=== PATIENT | female | born 1970 | race Caucasian/White ===

== ENCOUNTER 2018-07-24 16:18 | Inpatient (IN) ==
[2018-07-24 17:11] LABS: BASO# 0.02 X1000 (0.0-0.2); BASO% 0.3 % (0.0-0.8); EOS# 0.13 X1000 (0.0-0.7); EOS% 1.8 % (0.0-10.0); HEMATOCRIT 40.3 % (37.0-47.0); HEMOGLOBIN 13.3 g/dL (12.0-16.0); LYMPH% 17.6 % (20.5-51.1); MCH 28.9 PG (27-31); MCV 87.6 FL (81-99); MONO# 0.49 X1000 (0.11-0.59); MONO% 6.6 % (1.7-9.3); MPV 9.1 FL (7.4-10.4); NEUT# 5.46 X1000 (1.4-6.5); NEUT% 73.7 % (42.2-75.2); PLT 255 X1000 (130-400); RDW 15.9 % (11.5-14.5)
[2018-07-24 17:37] LABS: AGAP 13; ALB/GLOB RATIO 1.3; ALBUMIN 3.7 g/dL (3.5-5.0); ALKALINE PHOSPHATASE 67 U/L (32-104); AMYLASE 40 U/L (20-200); BUN 9 mg/dL (8-22); CALCIUM 8.9 mg/dL (8.8-10.2); CHLORIDE 105 mmol/L (98-107); COSMO 281; CREATININE 0.7 mg/dL (0.5-0.9); ESTIMATED GFR > 60; GLUCOSE 143 mg/dL (70-104); GOT 9 U/L (10-30); GPT 13 U/L (10-36); LIPASE 13 U/L (13-60); POTASSIUM 3.9 mmol/L (3.5-5.1); SODIUM 140 mmol/L (136-145); TCO2 22 mmol/L (25-35); TOTAL BILIRUBIN 0.55 mg/dL (0.20-1.00); TOTAL PROTEIN 6.6 g/dL (6.3-8.3)
[2018-07-24 20:55] LABS: URINE SOURCE CLEAN CATCH
--- NOTE | 2018-07-24 20:55 | PROVIDER DOCUMENTATION ---
HPI-Abdominal Pain/GI Problem - General Chief Complaint: Abdominal Pain Stated Complaint: ABD PAIN Time Seen by Provider: 07/24/18 20:36 Source: patient Allergies/Adverse Reactions: Patient Allergies Allergy/AdvReac Type Severity Reaction Status Date / Time naproxen Allergy Intermediate Unknown Verified 07/23/18 16:51 Home Medications: Home Medication List Medication Instructions Recorded Confirmed Last Taken Type Ibuprofen [Motrin] 800 mg PO Q8H PRN PRN #20 tab 02/11/17 Unknown Rx Acetaminophen 2 tab PO Q4-6H PRN PRN 07/25/18 07/25/18 Unknown History Acetaminophn/Pyril Mal/Caffein 1 cap NS Q8H PRN PRN 07/25/18 07/25/18 Unknown History [Midol Caplet] - History of Present Illness-ABD Nature of Presenting Problems: patient is a 48 y/o female with history of DUB presented with lower abdominal pain and vaginal bleeding, patient did not have FOOD AND DRUG RESEARCH SCIENTIST doctor to follow up. patient had ultrasound yesterday and was told fibroids. patient came in with pain in the abdomen Pain Radiation: reports: RLQ, LLQ Quality of Pain: reports: sharp Severity in ED: reports: moderate Onset/Duration: reports: gradual, other (chronic for years) Timing: reports: still present Exposure to sick contacts?: No Modifying Factors: improves with: nothing Last BM: unsure Rectal Pain: reports: none Emesis Description: reports: none Review of Systems - Adult - REVIEW OF SYSTEMS - ADULT Constitutional: denies: fever Eyes: reports: no symptoms reported Ears, Nose, Mouth & Throat: reports: no symptoms reported Cardiovascular: reports: no symptoms reported Respiratory: reports: no symptoms reported Gastrointestinal: reports: no symptoms reported Genitourinary: reports: other (vaginal bleeding) Musculoskeletal: reports: no symptoms reported Integumentary: reports: no symptoms reported Neurological: reports: no symptoms reported Psychiatric: reports: no symptoms reported Endocrine: reports: no symptoms reported Hematologic/Lymphatic: reports: other (prolonged vaginal bleeding) Past History - Adult - PAST MEDICAL HISTORY-ADULT Review of Records: reports: Nursing Assessment Review Major Childhood Illnesses: reports: denies history Cardiovascular: reports: denies history Respiratory: reports: denies history Gastrointestinal: reports: denies history Obstetrical/Gynecological: reports: denies history Genitourinary: reports: denies history Musculoskeletal: reports: chronic pain, intervertebral disc disease Neurological: reports: headaches/migraines Psychiatric: reports: denies history Endocrine/Immune: reports: Diabetes Other Conditions: reports: denies history - PRIOR SURGERIES/PROCEDURES Surgical/Procedure History: reports: cholecystectomy, - IMMUNIZATION STATUS Childhood Immunizations: See Nurse Assessment Flu Vaccine: See Nurse Assessment - FAMILY HISTORY Family History: diabetes Physical Exam-General - PHYSICAL EXAM-ADULT Initial Vital Signs Reviewed: No - CONSTITUTIONAL General Appearance: alert - EYES Eyes: PERRL/EOMI - HEAD, EARS, NOSE, MOUTH & THROAT HENMT: normocephalic/atraumatic - NECK Neck: non-tender - RESPIRATORY Respiratory: lungs clear - CARDIOVASCULAR Cardiovascular: no edema - GASTROINTESTINAL (ABDOMEN) Abdominal Exam: other (lower abdominal tenderness) - LYMPHATIC Lymphatic: no adenopathy - MUSCULOSKELETAL Back Exam: normal inspection, no vertebral tenderness Extremity: non-tender - NEUROLOGIC Neurologic: battalion chief II-XII nml as tested, grossly normal Progress - PLAN OF CARE/RESULTS Progress/Plan/Lab Results: Vital Signs - 8 hr 07/24/18 16:22 Temperature 97.7 F Pulse Rate 108 H Respiratory Rate 20 Blood Pressure 132/68 O2 Sat by Pulse Oximetry 96 Bedside Urine ED: Urine Bedside Start: 07/24/18 16:29 Freq: ORDERED Status: Active Protocol: Activity Type Activity Date Activity User E-Sign Co-Sign Detail Recorded Client Recorded Date Recorded By Document 07/24/18 20:47 [id number] 07/24/18 20:47 [id number] 07/24/18 20:47 Point of Care [Bedside Point of Care] -Lot # [id number] - Results Negative -Control Line Visible? Yes -Additional Comment exp 2019-09-14 Laboratory Results - last 24 hr 07/24/18 07/24/18 16:30 16:30 WBC 7.40 RBC 4.60 Hgb 13.3 Hct 40.3 MCV 87.6 MCH 28.9 MCHC 33.0 RDW Std Deviation 15.9 H Plt Count 255 MPV 9.1 Immature Gran % (Auto) 0.0 Neut % (Auto) 73.7 Lymph % (Auto) 17.6 L [place] % (Auto) 6.6 Eos % (Auto) 1.8 Baso % (Auto) 0.3 Immature Gran # (Auto) 0.00 Neut # (Auto) 5.46 Lymph # (Auto) 1.30 [place] # (Auto) 0.49 Eos # (Auto) 0.13 Baso # (Auto) 0.02 Sodium 140 Potassium 3.9 D Chloride 105 Carbon Dioxide 22 L Anion Gap 13 BUN 9 Creatinine 0.7 Estimated GFR/1.73 m2 > 60 BUN/Creatinine Ratio 13 Glucose 143 H Calculated Osmolality 281 Calcium 8.9 Total Bilirubin 0.55 AST 9 L ALT 13 Alkaline Phosphatase 67 Total Protein 6.6 Albumin 3.7 Globulin 2.9 Albumin/Globulin Ratio 1.3 Amylase 40 Lipase 13 Orders Category Date Time Status ED: Urine Bedside ORDERED Care 07/24/18 16:29 Active Saline Loc DIRECTED Care 07/24/18 16:29 Active NPO Diet 07/24/18 16:29 Active AMYLASE [CHEM] Stat Lab 07/24/18 16:30 Completed CBC WITH ELECTRONIC DIFF [HEME] Stat Lab 07/24/18 16:30 Completed COMPREHENSIVE METABOLIC PANEL [CHEM] Stat Lab 07/24/18 16:30 Completed LIPASE [CHEM] Stat Lab 07/24/18 16:30 Completed URINALYSIS W/POSS RFLX CULT [URINALYSIS] Stat Lab 07/24/18 20:47 Ordered Result Diagrams: 07/24/18 16:30 07/24/18 16:30 - CONSULTS/PCP/HOSPITALIST Notification #1 *Consult/PCP/Hospitalist*: Dr England Time Discussed: 22:00 Consult Disposition: other (wanted medical team admit patient and consult FOOD AND DRUG RESEARCH SCIENTIST) #2 Consult: Dr Loaiza Time Discussed: 22:10 Consult Disposition: Admit (OK to admit) Departure - Departure Date of Disposition Decision: 07/24/18 Time of Disposition Decision: 22:17 DIAGNOSIS: PID (pelvic inflammatory disease), UTI (urinary tract infection), DUB (dysfunctional uterine bleeding) Disposition: ADMITTED INPATIENT 09 Certified Medical Emergency: Emergent Condition: Good - Critical Care Note This patient required my direct & personal management of CC.: No Attestation - Physician/ AILYN Attestation Patient care was provided by Advanced Practice Provider:: No The physician spent face to face time with patient:: Yes Advanced Practice Provider documentation review:: Supervising physician onsite and consulted in the evaluation and care of this patient. The physician did have a face to face encounter with the patient.
[2018-07-24 20:58] LABS: BILIRUBIN URINE NEGATIVE (NEGATIVE); BLOOD URINE LARGE (NEGATIVE); COLOR ORANGE; GLUCOSE URINE TRACE mg/dL (NEGATIVE); KETONE URINE NEGATIVE (NEGATIVE); LEUKOCYTES URINE MODERATE (NEGATIVE); NITRITE URINE NEGATIVE (NEGATIVE); PH URINE 5.5; PROTEIN URINE 50 mg/dL (NEGATIVE); SP GRAVITY URINE 1.017; TURBIDITY URINE HAZY (CLEAR); UR EPITHELIAL CELLS <10 /HPF (<10); URINE BACTERIA 1+ /HPF; URINE RBC TNTC /HPF (<10); URINE WBC 20-40 /HPF (<10); UROBILINOGEN URINE NORMAL (NORMAL)
[2018-07-24] MEDS ORDERED: DILAUDID IM ONE (21:11)
[2018-07-24] MEDS ORDERED: ZOFRAN IM ONE (21:11)
--- NOTE | 2018-07-24 21:52 | Diag Imaging Result Doc PS360 ---
EXAM: CT ABDOMEN/PELVIS W/O CONTRAST INDICATION: lower abdominal pain, vaginal bleeding TECHNIQUE: This exam was performed using automated exposure control, adjustment of mA or kV according to patient size, and/or use of iterative reconstruction technique. COMPARISON: None. FINDINGS: There has been a prior cholecystectomy. The liver, spleen, pancreas, adrenal glands, kidneys, and urinary bladder are grossly unremarkable. There is inflammatory stranding in the right lower quadrant and right-sided the pelvis. I cannot clearly identify the appendix. Appendicitis cannot completely be excluded. However, the inflammation appears to be more centered around the right adnexal region. Pelvic inflammatory disease is a consideration. Further evaluation is limited with no IV or oral contrast. There is trace free fluid in the pelvis. The GI tract is grossly unremarkable as imaged. No free abdominal gas is identified. The bony structures are grossly intact. IMPRESSION: Inflammatory stranding in the right lower quadrant and right side of the pelvis. The appendix cannot be identified so appendicitis cannot completely be excluded. However, the inflammation appears to be more centered around the right adnexal region. Electronically signed by Jm Xavier 07/24/2018 9:49 PM
[2018-07-24 21:54] LABS: AMYLASE 39 U/L (20-200); LIPASE 14 U/L (13-60)
[2018-07-24] MEDS ORDERED: DILAUDID IV ONE (22:14)
[2018-07-24] MEDS ORDERED: ROCEPHIN 1 GM in NS 50 ML IV SCH (22:15)
[2018-07-24] MEDS ORDERED: ZOFRAN IV ONE (22:15)
[2018-07-24] MEDS ORDERED: FLAGYL 500 MG/NS 500 MG/100 ML IVPB IV SCH (23:00)
--- NOTE | 2018-07-24 23:54 | HISTORY AND PHYSICAL ---
PRIMARY CARE PHYSICIAN: Dr. Johnson CHIEF COMPLAINT: Heavy menstrual cycles and abdominal pain. HISTORY OF PRESENTING ILLNESS: A 48-year-old female with a history of diabetes mellitus type 2, diet-controlled, who had presented to emergency department with 2 weeks history of having heavy menstruation and abdominal discomfort. She was evaluated in the emergency department. She had a urinalysis done which was suspicious for UTI, and due to her presenting symptoms, it was thought that she would need admission for further management. At the time of my examination, the patient had stated that she was having heavy menstrual cycles since 2 weeks and she had gone through 14 to 15 tampons per day. Her case was discussed with the furnace repairer helper, who recommended the patient be admitted for further evaluation and management. At the time of my examination, patient denied any headache, fever, chills, nausea, vomiting, diarrhea, hemoptysis, melena, weight changes, but complained of some suprapubic abdominal pain. PAST MEDICAL HISTORY: Includes diabetes mellitus type 2, diet-controlled. PAST SURGICAL HISTORY: Cholecystectomy. ALLERGIES TO: Naproxen. CURRENT MEDICATIONS: Include gabapentin 100 mg, 2 tablets at bedtime, meloxicam 7.5 mg p.o. daily, metformin 500 mg p.o. daily, rosuvastatin 5 mg p.o. daily, Zantac 150 mg p.o. daily. SOCIAL HISTORY: She is a former smoker. Denies any history of alcohol or illicit drug use. FAMILY HISTORY: No history of coronary disease. REVIEW OF SYSTEMS: Fourteen-point review of systems is as in HPI. Other systems negative. PHYSICAL EXAMINATION: GENERAL: Cooperative, friendly, obese female. She is resting comfortably now. VITAL SIGNS: Temperature 97.7 degrees, pulse 108, respirations 20, blood pressure 132/60. HEENT: Atraumatic, normocephalic. Extraocular movements intact. PERRLA. NECK: No masses. CHEST: Clear to auscultation. CARDIOVASCULAR: Regular rate and rhythm. ABDOMEN: Soft, obese. Positive bowel sounds. GENITOURINARY: There is some suprapubic tenderness. EXTREMITIES: No edema. NEUROLOGIC: She is awake, alert, oriented x3. GENITOURINARY: No bladder distention. There is some suprapubic tenderness. SKIN: Warm. LABORATORIES AND STUDIES: WBC 7.4, hemoglobin 13.3, hematocrit 40.3, platelets 255,000. Sodium 140, potassium 3.9, chloride 105, CO2 is 22, BUN 9, creatinine 0.7. Glucose is 143. Abdominal CT shows inflammatory stranding in the right lower quadrant and right side of the pelvis. ASSESSMENT: This is a 48-year-old obese female who had presented to emergency department with 2 week history of having heavy menstrual cycles and also abdominal pain. She was evaluated in the emergency department. She had a urinalysis done, which did show suspicion for urinary tract infection, and due to her presenting symptoms, it was thought that we will place her for observation for further evaluation and management. 1. Abnormal Uterine Bleeding 2. Urinary tract infection. 3. Diabetes mellitus type 2. PLAN: 1. We will admit patient to medical floor. 2. We will consult gynecology. 3. We will check urine cultures. Start patient on IV antibiotics. 4. We will monitor blood glucose and put patient on sliding scale insulin regimen. 5. Put patient on DVT prophylaxis with SCDs. 6. We will continue to follow and reassess, make further recommendation based on patient's clinical course. cc: Omari Loaiza MD MTDD
[2018-07-25] MEDS ORDERED: DOXYCYCLINE 100 MG in NS 250 ML IV SCH (01:00)
[2018-07-25] MEDS: NS 1,000 ML IV SCH ×3 (01:48→22:54)
[2018-07-25] MEDS: DILAUDID IV PRN ×4 (01:48→22:54)
[2018-07-25] MEDS: HUMULIN R SUBQ SCH ×4 (02:20→17:35)
[2018-07-25 07:12] LABS: BASO# 0.02 X1000 (0.0-0.2); BASO% 0.2 % (0.0-0.8); EOS# 0.01 X1000 (0.0-0.7); EOS% 0.1 % (0.0-10.0); HEMATOCRIT 37.3 % (37.0-47.0); HEMOGLOBIN 12.1 g/dL (12.0-16.0); IMM GRAN# 0.02 X1000 (0.0-0.04); IMM GRAN% 0.2 % (0.0-0.5); LYMPH# 0.75 X1000 (1.2-3.4); LYMPH% 8.2 % (20.5-51.1); MCH 28.9 PG (27-31); MCHC 32.4 g/dL (33-37); MONO# 0.77 X1000 (0.11-0.59); MONO% 8.5 % (1.7-9.3); NEUT# 7.54 X1000 (1.4-6.5); NEUT% 82.8 % (42.2-75.2); PLT 234 X1000 (130-400); RBC 4.19 XMIL (4.2-5.4); WBC 9.11 X1000 (4.8-10.8)
[2018-07-25 07:47] LABS: AGAP 11; BUN 9 mg/dL (8-22); CALCIUM 8.9 mg/dL (8.8-10.2); CHLORIDE 104 mmol/L (98-107); COSMO 282; CREATININE 0.7 mg/dL (0.5-0.9); ESTIMATED GFR > 60; GLUCOSE 198 mg/dL (70-104); SODIUM 139 mmol/L (136-145); TCO2 24 mmol/L (25-35)
--- NOTE | 2018-07-25 11:35 | PROGRESS NOTE ---
DATE: 07/25/2018 SUBJECTIVE: This is a 48-year-old followed by Dr. Johnson in the past and at present seen [facility] and complained of heavy menstrual cycle and presented to the emergency room. History of diabetes mellitus type 2, diet controlled. Presented to the emergency department with a 2-week history of heavy menstruation, abdominal discomfort. Evaluated in the emergency department. Had urinalysis suspicious for UTI. Due to her presenting symptoms, felt she needed to be admitted. She has been having heavy menstrual cycles for a couple weeks going through 14 to 15 tampons a day. Her case was discussed with circulation librarian. Recommend the patient be admitted for further evaluation and management. PAST MEDICAL HISTORY: Diabetes mellitus type 2. SURGICAL HISTORY: Status post cholecystectomy. MEDICATION: I think she is on gabapentin, meloxicam, metformin, rosuvastatin and Zantac. SOCIAL HISTORY: Former heavy smoker. No history of alcohol or recent tobacco. No illicit drugs. OBJECTIVE: Vital Signs: On exam today, she is awake and alert. is at the bedside. Vital Signs: Temperature 98.9 degrees, pulse 70, respirations 22, blood pressure 117/61. Eyes: Pupils are equal and round. Lungs: Clear in all lung can. Cardiovascular exam: Regular rhythm and rate without murmur or S3. Abdomen: Soft. Skin: Warm and dry. Blood sugar 194 and 197. ASSESSMENT AND PLAN: 1. Heavy abnormal uterine bleeding. Asked Gynecology to help dictate what we are going to do and what is a definitive treatment. 2. Treating for possible urinary tract infection. 3. Diabetes mellitus type 2. Note that on her lab, hemoglobin was 13, hematocrit 40; repeat today, hematocrit 37 and hemoglobin 12. No indications for transfusion. Note also MCV is 89, so not microcytic. Electrolytes look good. Renal function looks good. I will let her have a full liquid diet. I think we can advance from there. We are treating her for urinary tract infection with ceftriaxone. cc: Conner Mace MD MTDD
[2018-07-25 15:48] LABS: HEMOGLOBIN A1C 5.8 % (4.8-6.0)
[2018-07-25 15:54] LABS: FREE T4 1.14 ng/dL (0.93-1.70); TSH 0.39 uIUmL (0.27-4.20)
--- NOTE | 2018-07-25 18:14 | PROGRESS NOTE ---
DATE: 07/25/2018 Ms. Salgado has not had any real further bleeding today and she was evaluated by DISPLAY DECORATOR. She had a pelvic ultrasound done on 07/23, small right ovarian cyst, otherwise negative. DISPLAY DECORATOR was not able to get a biopsy and recommended that she go on Megace 40 mg twice a day till the bleeding stops then 40 mg a day. As far as the mention on abdominal pelvic CT, inflammatory stranding in the right lower quadrant, right side of the pelvis, appendix could not be identified so appendicitis could not be excluded. She would like surgery to render opinion so will stay here tonight. I will advance her to a diabetic diet. She remains afebrile, pulse 70, respirations 22, blood pressure Pupils are equal and round. Lungs are clear in all lung can. Cardiovascular. Regular rhythm, rate without murmur or S3. Blood sugars 194 and 137. Advance her diet and ask Dr. Ian Singh to see her in the morning. My clinical suspicion of appendicitis is very low. White count is unremarkable. I did discuss the importance of her following up with DISPLAY DECORATOR and continue the Megace. I think she was on Micronor before but she does not have that prescription anymore. cc: Conner Mace MD MTDD
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
[2018-07-25] MEDS: MEGACE PO SCH (22:55)
[2018-07-25] MEDS ORDERED: ROCEPHIN 1 GM in NS 50 ML IV SCH (23:00)
[2018-07-26] MEDS: DILAUDID IV PRN ×3 (02:55→11:20)
[2018-07-26] MEDS: HUMULIN R SUBQ SCH ×4 (06:28→20:06)
--- NOTE | 2018-07-26 07:14 | GENERAL SURGERY CONSULTATION ---
DATE: 07/26/2018 REQUESTING PHYSICIAN: Dr. Mace. CONSULT REQUEST: Rule out appendicitis. HISTORY OF PRESENT ILLNESS: A 48-year-old female who initially presented with heavy menstrual cycles and abdominal pain. She has had a 2-week history of heavy menstruation. She has been started on medication by the neurology epilepsy physician. In the process of the working her up, she did have a CT scan which they could not see the appendix but there was some fluid down in her pelvis and some inflammatory changes, but it appears to be more centered around the right ovary. Given this, there was some concern about potential for appendicitis. I was asked to weigh an opinion. PAST MEDICAL HISTORY: 1. Diabetes mellitus type 2. 2. Obesity with a BMI of 45. PAST SURGICAL HISTORY: Includes cholecystectomy. ALLERGIES: Naproxen. CURRENT MEDICATIONS: Reviewed. Of note, she is on Rocephin. SOCIAL HISTORY: Former smoker. FAMILY HISTORY: Reviewed with patient, but noncontributory. REVIEW OF SYSTEMS: A full 10-point review of systems obtained, negative except as specified in HPI. PHYSICAL EXAMINATION: Vital Signs: Patient is currently afebrile. Her vital signs have been stable. General: No acute distress, resting comfortably. HEENT: Normocephalic, atraumatic. Pupils equal, round, reactive to light. Mucous membranes moist. Oropharynx benign. Neck: Supple. Trachea midline. Cardiovascular: Regular rate and rhythm. Lungs: Grossly clear. Abdomen: Obese. No real peritoneal signs. No real tenderness in the right lower quadrant at McBurney's point. No rebound tenderness. Extremities: Moves all extremities. Neurologic: Grossly intact. Skin: No signs of jaundice. Vascular: All extremities perfused. LABORATORY: None this morning but reviewed yesterday. White blood cell count was 9. Remainder of labs reviewed. IMAGING: CT scan independently reviewed and radiology report reviewed. ASSESSMENT/PLAN: A 48-year-old with heavy menstrual bleeding and some abdominal pain for rule out appendicitis. 1. Rule out appendicitis. At this time, I have a low degree of suspicion that she has appendicitis. She is not significantly tender in the right lower quadrant. She has inflammatory changes more on the right adnexa than the appendix itself. Since she has been admitted, she has been on antibiotics, which may be masking it slightly, but again, clinically I do not think she has appendicitis, but would not be opposed to watching her and monitoring for now. No immediate plans for surgical intervention. 2. Heavy menstruation. Defer to the neurology epilepsy physician. cc: Iam Bruner MD
[2018-07-26] MEDS: MEGACE PO SCH ×2 (08:21→20:07)
--- NOTE | 2018-07-26 15:15 | PROGRESS NOTE ---
DATE: 07/26/2018 SUBJECTIVE: She reports that she is having more pain in her right lower quadrant. The exam is really not very consistent. I do not appreciate tenderness in the right lower quadrant. She is stating that the pain medicine is not holding her. Dr. Bruner has evaluated. He does not see evidence of appendicitis and she could have some other process such as endometriosis or something else going on. I do not see any evidence of a surgical abdomen. Initial bleeding has let up and she is on Megace. She remains afebrile. She is eating diabetic diet. OBJECTIVE: Vital signs: Temp is 97.5 degrees, pulse 80, respirations 20, blood pressure 122/70. HEENT: Pupils are equal and round. Lungs: Clear in all lung can. Cardiovascular: Regular rhythm and rate without murmur or S3. Abdomen: Soft, nondistended. I do not have consistent tenderness on exam in any quadrant. Extremities: No pedal edema. ASSESSMENT AND PLAN: 1. She initially presented with heavy menstrual bleeding and that has been controlled. She does not have any significant anemia. She is on Megace. Advised to follow up with a senior solutions architect, to take Megace 40 mg twice a day and then once a day when the bleeding lets up, and follow up with Gynecology. There is a possibility of endometriosis. 2. Abdominal pain which is inconsistent. I think we need to stop the opioid pain medicines; I do not think this is helping. I will check a flat and upright and see if constipation is a factor. Inflammatory changes on CT scan seem to be more around the right adnexal than the appendix itself and no evidence of appendicitis at this time. I may get GI involved tomorrow if she still continues to hurt. We will work on trying to move her bowels. I will stop her Dilaudid and will use Toradol and Tylenol. I reviewed her labs again and I do not see anything remarkable that would suggest liver dysfunction or absorption issues. 3. Diabetes. Sugars seem to be under fairly good control. We will continue ceftriaxone. I do not see any evidence of true infection. We did have a urine culture and there is no pathological growth in there. Blood cultures were negative. So, I will stop her ceftriaxone and we will check a flat and upright. cc: Conner Mace MD
--- NOTE | 2018-07-26 17:42 | Diag Imaging Result Doc PS360 ---
EXAM: KUB ABDOMEN INDICATION: constipation, R sided abdominal pain TECHNIQUE: One view COMPARISON: None. FINDINGS: There is a fair amount of stool in the colon, which may indicate mild constipation. There is no obstructive bowel pattern. There is no evidence of large volume free abdominal gas. Cholecystectomy clips are noted. IMPRESSION: Possible mild constipation. Electronically signed by Jm Xavier 07/26/2018 5:39 PM
[2018-07-26] MEDS: TORADOL IV PRN (19:34)
[2018-07-27] MEDS: TORADOL IV PRN ×4 (03:10→22:03)
[2018-07-27] MEDS: HUMULIN R SUBQ SCH ×4 (05:59→21:09)
--- NOTE | 2018-07-27 07:15 | GENERAL SURGERY PROGRESS NOTE ---
DATE: 07/27/2018 SUBJECTIVE: The patient seems to be doing okay. OBJECTIVE: Vital Signs: The patient is currently afebrile. Her vital signs are stable. General Examination: No acute distress. HEENT: Normocephalic, atraumatic. Pupils equal, round, reactive to light. Mucous membranes moist. Oropharynx benign. Neck: Supple. Trachea midline. Cardiovascular: Regular rate and rhythm. Lungs: Grossly clear. Abdomen: Soft, obese. Some mild tenderness but no peritoneal signs. No real tenderness in the right lower quadrant. Extremities: Moves all extremities. Neurologic: Grossly intact. Skin: No signs of jaundice. Vascular: All extremities perfused. Laboratory: None this morning as of yet. ASSESSMENT AND PLAN: A 48-year-old female with abdominal pain. Abdominal pain. At this time, I do not think that she clinically has appendicitis. She has gone 24 more hours without any significant increase in her pain. I think it is safe to say that we have ruled out appendicitis. From this point of view, we will be available as needed. She could see myself in the office in 1 to 2 weeks. cc: Iam Bruner MD
[2018-07-27] MEDS: TYLENOL PO PRN ×2 (08:01→16:36)
[2018-07-27] MEDS: MEGACE PO SCH ×2 (09:30→21:10)
[2018-07-27] MEDS: PRILOSEC PO SCH (12:18)
[2018-07-27] MEDS: MIRALAX PO SCH ×2 (12:18→21:10)
[2018-07-27] MEDS ORDERED: GOLYTELY PO ONE (14:00)
--- NOTE | 2018-07-27 14:08 | PROGRESS NOTE ---
DATE: 07/27/2018 SUBJECTIVE: She states she does not feel good at all. She is hurting more in her abdomen now. It is predominantly more on the right but it is all across her lower abdomen, cramping type pain. She feels like she has had fever and chills. I do not see that recorded last night. PHYSICAL EXAMINATION: Vital Signs: Today, temperature 97.9 degrees, pulse 88, respirations 16, blood pressure 130/47. Pupils are equal. No distended neck veins. Abdomen: Really not consistent exam. I do not appreciate any true repeatable tenderness there. I did ask Dr. Sanchez to see. ASSESSMENT AND PLAN: 1. She had a CT scan. She came in with vaginal bleeding and this is better. The swelling has stopped. She has had heavy menstrual cycles. She has been put on Megace. On the CT scan, I could not really see the appendix but there was some fluid down in the pelvis and some inflammatory changes. It might be around the right ovary. Dr. Sanchez is going to, I think, look with a colonoscopy and see if anything is in the right colon and kind of go from there. 2. Obesity. Body mass index is 45. 3. Heavy menstrual periods. She is on the Megace. I have gone ahead and stopped her antibiotic. I stopped the Dilaudid and we will use Toradol as needed. I put her on a proton pump inhibitor and she has some mild constipation so I put her on some MiraLAX 17 g twice a day. I am going to get her ready for prep for a colonoscopy tomorrow. cc: Conner Mace MD
--- NOTE | 2018-07-27 15:22 | GASTROENTEROLOGY CONSULTATION ---
DATE: 07/27/2018 REQUESTING PHYSICIAN: Dr. Mace. REASON FOR CONSULT: Abdominal pain in the right lower quadrant. HISTORY OF PRESENT ILLNESS: Ms. Salgado is a 48-year-old female who was admitted on 07/24/2018 for menorrhagia and right lower quadrant abdominal pain. She was seen by OB in the hospital and they suggested starting her on Megace 40 mg b.i.d. until the bleeding stops and once a day thereafter. She was also seen by general surgery for right lower quadrant pain and abnormal CT scan. The CT scan on admission had shown evidence of inflammatory stranding in the right lower quadrant and right side of the pelvis. The appendix could not be identified but according to the CT scan report, the inflammation appeared to be more centered around the right adnexal region. Dr. Bruner saw the patient and is continuing with conservative management. No plans for any surgical intervention at this moment. According to Dr. Bruner's note, it appears that he is not convinced that the patient has appendicitis. Now gastroenterology is consulted for ongoing abdominal pain in the right lower quadrant and constipation. Over the weekend, she was on IV Dilaudid which made her constipated. She had her last bowel movement 3 days ago. She denies any nausea or vomiting. She does complain of feverish sensation but the records on review did not reveal any documented fever other than on admission of 100.7 on 07/24/2018. She denies any nausea, vomiting, vomiting blood. She complains of constipation. PAST MEDICAL HISTORY: Diabetes type 2, obesity. PAST SURGICAL HISTORY: Cholecystectomy. ALLERGIES: Naproxen. SOCIAL HISTORY: She is a former smoker. She denies a history of alcohol or illicit drug abuse. She is . Her is very supportive at the bedside. FAMILY HISTORY: Noncontributory. REVIEW OF SYSTEMS: Denies any nausea, vomiting, vomiting blood. Does complain of feverish feeling. Denies any rigors and chills. Denies any chest pain, shortness of breath, or dyspnea at rest. Denies any vomiting blood. Denies any blood in the stools. Does complain of constipation, and pain in the right lower quadrant and in the suprapubic region. She denies any neurologic complaints. MEDICATIONS: In the hospital include Tylenol, human regular insulin subcutaneous, ketorolac, Megace 40 mg p.o. b.i.d., Prilosec 40 once daily. She was started on MiraLAX 17 g p.o. b.i.d., just started for constipation. DIET: She is on a diabetic diet. PHYSICAL EXAMINATION: Vital Signs: Temperature 98.2 degrees, pulse rate of 80, respiratory rate of 16, blood pressure 107/31, saturating 100% on room air. Body weight of 258 pounds and 3 ounces. BMI 45.7 kg/m2. General: Morbidly obese. Lying in bed. Complaining of pain in the right lower quadrant. HEENT: No pallor. No icterus. Pupils equal, reactive to light. Neck: Supple. Abdomen: Discomfort in the right lower quadrant. No rebound or guarding. Morbid obesity noted. Extremities: No cyanosis, clubbing. Neurologic: Alert, awake, oriented x3. LABS: Hemoglobin and hematocrit are 12.1 and 37.8, white count of 9.1, platelet count of 234,000. Sodium 139, potassium 4, chloride 104, bicarb 24, anion gap 11, BUN of 9, creatinine 0.7, glucose of 198, calcium is 8.9, hemoglobin A1c 5.8. Total bilirubin is 0.55, AST 9, ALT 13, alkaline phosphatase 60, total protein 6.6, albumin 3.7, lipase of 14, amylase of 39. Urinalysis showed positive protein, positive blood, moderate leukocytes. Urine culture, no pathogenic growth. Blood cultures x2 negative at 48 hours, from 07/26/2018. Abdominal x-ray done on 07/26/2018 showed possible mild constipation. There is fair amount of stool in the colon which may indicate mild constipation. Cholecystectomy clips are noted. Abdominal CT scan as described in the HPI. IMPRESSION AND PLAN: 1. Menorrhagia and right lower quadrant inflammation centered around the right adnexa. She needs to be followed by a gynecology team. I have discussed that with the patient and Dr. Mace. 2. Constipation. We will start her on MiraLAX 17 g twice a day and hold it for more than 3 bowel movements in 24 hours. 3. Right lower quadrant pain. There is a question of colitis. The patient's also a history of Crohn's disease. We have offered endoscopy/colonoscopy to the patient. The patient and family want to undergo colonoscopy to evaluate for any underlying colon pathology. In this regard, we will start her on a clear liquid diet today. We will give her GoLYTELY 1 gallon, scheduled for colonoscopy tomorrow by Dr. Valle. Risks Benefits indications and alternatives discussed with the patient and family and all questions were answered. 4. Diabetes, diet-controlled. 5. Gastrointestinal prophylaxis with proton pump inhibitors. 6. Pain control with ketorolac. 7. We will follow along. I discussed the plan with the patient and the family at bedside. I also spoke with Dr. Conner Mace. The above plan was discussed with the patient and family and the primary care team, and all questions were answered. Please call us with any further questions. cc: MD Conner Wright MD R. Tyler Harney, MD Matthew L. Figh, MD MTDD
[2018-07-27] MEDS: ZOFRAN IV PRN ×2 (16:36→21:16)
[2018-07-28] MEDS: ZOFRAN IV PRN (01:53)
[2018-07-28] MEDS: TORADOL IV PRN ×3 (04:28→21:43)
[2018-07-28] MEDS: HUMULIN R SUBQ SCH ×4 (06:16→20:15)
[2018-07-28] MEDS: PRILOSEC PO SCH (06:16)
[2018-07-28] MEDS ORDERED: DIPRIVAN 1% ONE ×2 (12:08→12:28)
[2018-07-28] MEDS ORDERED: XYLOCAINE-MPF 2% ONE (12:09)
[2018-07-28] MEDS ORDERED: VERSED ONE (12:17)
[2018-07-28] MEDS: MEGACE PO SCH ×2 (13:38→20:14)
[2018-07-28] MEDS: MIRALAX PO SCH ×3 (13:38→22:30)
--- NOTE | 2018-07-28 15:00 | OPERATIVE NOTE ---
PROCEDURE DATE: 07/28/2018 PROCEDURE: Colonoscopy. PROVIDER: Dennis Valle MD. INDICATIONS: Right lower quadrant pain. MEDICATIONS: Monitored anesthesia care. DESCRIPTION OF PROCEDURE: Prior to procedure, a history and physical was performed. The patient's medication and allergies were reviewed. The patient's tolerance to previous anesthesia was also reviewed. The risks and benefits of the procedure and sedation, options and risks were discussed with the patient. All questions were answered, and informed consent was obtained. After reviewing the risks and benefits, the patient was deemed in satisfactory condition to undergo the procedure. The colonoscope was passed under direct visualization. Throughout the procedure, the patient's blood pressure, pulse and oxygen saturation were monitored continuously. Colonoscope was introduced through the anus, and advanced to the cecum identified by the appendiceal orifice and ileocecal valve. The colonoscopy was accomplished without difficulty. The quality of the prep was poor. The patient tolerated the procedure well. COMPLICATIONS: No immediate complications. ESTIMATED BLOOD LOSS: Minimal. FINDINGS: There was a thin liquid stool found throughout the colon that was otherwise normal. Colonoscopy could not rule out any flat or polyps less than 1 cm. Multiple attempts were made to try to intubate the ileocecal valve, which was unsuccessful. Retroflexion in the rectum was unremarkable. RECOMMENDATIONS: Resume diet and advance as tolerated. No lower GI etiology of the patient's abdominal pain found. It was unlikely the patient has Crohn's disease given her normal labs and absence of symptoms other than right lower quadrant pain. I suspect patient's pain may be related to ASSEMBLY TECHNICIAN etiology. Recommend further evaluation with transvaginal ultrasound and LIVESTOCK LABORER consultation.
--- NOTE | 2018-07-28 15:07 | PROGRESS NOTE ---
DATE: 07/28/2018 SUBJECTIVE: This patient just came back from the OR. She had a colonoscopy, pending results, but I believe is normal. On my physical exam, this patient is an obese lady with a body mass index of 45.7. She is lying comfortably in bed with no respiratory distress, but she is complaining of lower abdominal pain, mostly at the level of the right lower and left lower abdominal quadrants, no chest pain. OBJECTIVE: Vital Signs: Temperature 98.5, pulse 87, respiratory rate 20, blood pressure 138/52. Oxygen saturation 100% on room air. HEENT: Head normocephalic. No trauma. PERRLA. Neck: Supple. No JVD. No masses. Central trachea. Chest: Clear to auscultation. No wheezing. No rales. Abdomen: Soft. Tenderness to palpation at the level of the right lower and left lower quadrants. Some tenderness also at the level of the suprapubic area. Positive bowel sounds. No signs of peritoneal irritation. Extremities: No edema, no clubbing, no cyanosis. Neurologic: The patient is sleepy, but arousable. She is oriented. She is answering all my questions and following commands. LABORATORY: Glucose 82. ASSESSMENT AND PLAN: 1. Abnormal uterine bleeding. This patient has been placed on Megace 40 [address] p[address]o. b.i.d. by Dr. Charles Roberson. He has recommended to continue with Megace b.i.d. until bleeding stops and then once a day thereafter. She needs to follow up as an outpatient as soon as possible to continue treatment with Ski Guide. 2. Abdominal pain, mostly located at the level of the lower abdomen, right lower and left lower quadrant today. Also, at the suprapubic area. As per the patient, the she is not bleeding that much now, no signs of peritoneal irritation. We did a CT scan of the abdomen that showed inflammatory stranding in the right lower quadrant and right-sided of the pelvis. The appendix cannot be identified, so appendicitis cannot be completely excluded. However, the inflammation appears to be more centered around the right adnexal region. Surgery Department evaluated this patient and they do not think that she clinically has appendicitis, but they are following this lady on a daily basis. 3. Type 2 diabetes? I do not see any medication for diabetes on her home medications. Her blood sugar has been decent, but slightly elevated between 82 and 198, hemoglobin A1c 5.8, though, I will discuss with the patient about her diabetes. 4. Morbid obesity, diet and exercise has been discussed. 5. This patient had a colonoscopy today to rule out any rectal or colon issues. I will wait for the report, but I believe it is completely normal. We will just monitor. cc: Sergio Castellanos MD
[2018-07-28] MEDS: TYLENOL PO PRN (20:20)
--- NOTE | 2018-07-28 20:22 | GENERAL SURGERY PROGRESS NOTE ---
DATE: 07/28/2018 SUBJECTIVE: She just had a colonoscopy. Apparently, said she complains of kind of vague abdominal discomfort. No fevers. No tachycardia documented overnight. OBJECTIVE: Abdomen is soft. She is obese with pannus, but there is no bessie peritonitis. She is quite somnolent following her procedure, still somewhat drowsy. ASSESSMENT AND PLAN: A 48-year-old female with likely NEWS LIBRARIAN related changes causing her lower quadrant discomfort. No bessie signs of appendicitis on exam or imaging with a normal white count and no fevers. We will continue to follow her along but no plans for urgent surgical intervention. cc: Balbina Singh MD
[2018-07-29] MEDS: TYLENOL PO PRN ×2 (04:31→16:05)
[2018-07-29] MEDS: PRILOSEC PO SCH (06:46)
[2018-07-29] MEDS: HUMULIN R SUBQ SCH (06:54)
[2018-07-29 08:05] LABS: BASO# 0.01 X1000 (0.0-0.2); BASO% 0.1 % (0.0-0.8); EOS# 0.12 X1000 (0.0-0.7); EOS% 1.5 % (0.0-10.0); HEMATOCRIT 31.8 % (37.0-47.0); HEMOGLOBIN 9.9 g/dL (12.0-16.0); IMM GRAN# 0.03 X1000 (0.0-0.04); IMM GRAN% 0.4 % (0.0-0.5); LYMPH# 1.11 X1000 (1.2-3.4); LYMPH% 14.1 % (20.5-51.1); MCHC 31.1 g/dL (33-37); MCV 90.1 FL (81-99); MONO# 0.52 X1000 (0.11-0.59); MONO% 6.6 % (1.7-9.3); NEUT# 6.08 X1000 (1.4-6.5); NEUT% 77.3 % (42.2-75.2); PLT 276 X1000 (130-400); RBC 3.53 XMIL (4.2-5.4); RDW 15.4 % (11.5-14.5); WBC 7.87 X1000 (4.8-10.8)
[2018-07-29] MEDS: MIRALAX PO SCH ×2 (08:07→22:18)
[2018-07-29] MEDS: MEGACE PO SCH ×2 (08:07→22:18)
[2018-07-29 08:16] LABS: AGAP 9; ALKALINE PHOSPHATASE 71 U/L (32-104); BUN 5 mg/dL (8-22); CALCIUM 8.8 mg/dL (8.8-10.2); CHLORIDE 105 mmol/L (98-107); COSMO 276; CREATININE 0.6 mg/dL (0.5-0.9); ESTIMATED GFR > 60; GLUCOSE 113 mg/dL (70-104); GOT 14 U/L (10-30); GPT 24 U/L (10-36); POTASSIUM 3.7 mmol/L (3.5-5.1); SODIUM 139 mmol/L (136-145); TCO2 25 mmol/L (25-35); TOTAL BILIRUBIN 0.47 mg/dL (0.20-1.00); TOTAL PROTEIN 6.1 g/dL (6.3-8.3)
[2018-07-29] MEDS: TORADOL IV PRN (08:26)
--- NOTE | 2018-07-29 09:45 | PROGRESS NOTE ---
DATE: 07/29/2018 SUBJECTIVE: This patient is still complaining of lower abdominal pain. Surgery Department believes that probably this is a SUPERVISOR COOK ROOM-related problem. There are no bessie signs of appendicitis on exam or images. White blood cell count is normal and no fever. I will transfer this patient to [place] so she can be re-evaluated by RESOLUTION REP, probably they can do a transvaginal ultrasound and help her with the with her pain. In the meantime, I will put this patient on tramadol to see how she does since she is complaining of headache and abdominal pain. I will repeat the urine culture as well, which has been negative before, but she believes that probably she has a UTI. OBJECTIVE: Vital Signs: Temperature 98.1 degrees, pulse 87, respiratory rate 20, blood pressure 121/61, oxygen saturation 100% on 2 L of nasal cannula. HEENT: Head normocephalic, no trauma, PERRLA. Neck: Supple. No JVD. No masses. Central trachea. Chest: Clear to auscultation. No wheezing. No rales. Abdomen: Soft. Tenderness to palpation at the level of the lower abdomen, especially right lower and left lower quadrants, suprapubic tenderness as well. Positive bowel sounds. No signs of peritoneal irritation. Extremities: No edema, no clubbing, no cyanosis. Neurological: This patient is alert. She is oriented x3. She is tolerating p.o. She is answering all my questions. LABORATORY: WBC 7.8, hemoglobin 9.9, hematocrit 31.8, platelets 276,000. Sodium 139, potassium 3.7, chloride 105, bicarbonate 25, BUN 5, creatinine 0.6, glucose 113, calcium 8.8. AST 14, ALT 24, alkaline phosphatase 71, albumin 3. ASSESSMENT AND PLAN: 1. Abnormal uterine bleeding. This patient has been placed on Megace 40 [address] p[address]o. b.i.d. by Dr. Charles Roberson. He has recommended to continue with this treatment twice a day until bleeding stops and then once a day thereafter. This patient is still having pain. I will transfer this patient to [facility] to see if they can help her and do probably an ultrasound to rule out any other problems, likely transvaginal ultrasound. 2. Abdominal pain. As above, Surgery Department as well as Gastroenterology Department on board. A colonoscopy was done yesterday. There was thin liquid stool found throughout the colon, but it was otherwise normal. Colonoscopy could not rule out any flat or polyps less than 1 cm. They tried to go through the ileocecal valve, but after multiple attempts, were unsuccessful. We have started this patient on a diet and we can advance the diet as tolerated. 3. Type 2 diabetes. I do not see any medication listed for diabetes on her home medication. Her hemoglobin A1c is 5.8. 4. Morbid obesity. She needs to be on a diet and do more physical activity. cc: Sergio Castellanos MD
[2018-07-29] MEDS: ULTRAM PO PRN ×2 (11:47→22:38)
[2018-07-29] MEDS: HUMULIN R (PARKWAY) SUBQ SCH ×4 (13:07→22:21)
--- NOTE | 2018-07-29 15:57 | Diag Imaging Result Doc PS360 ---
EXAM: US PELVIC NON-OB COMPLETE - 07/29/2018 HISTORY: abdominal pain- TECHNIQUE: Portable ultrasound pelvis. Exam performed using transvaginal probe. COMPARISON: 07/23/2018 FINDINGS: The uterus measures 8.8 x 3.9 x 4.5 cm in size. The uterus appears nongravid, with dual layer endometrial thickness of 1.1 cm. There is no uterine lesion identified. The bilateral ovaries demonstrate blood flow signal on Doppler images. There is a 3.6 x 2.8 x 3.8 cm cyst at the right adnexa. This likely represents an exophytic cyst arising from the right ovary. There is no other adnexal mass identified. There is no free fluid identified. IMPRESSION: Apparent 3.6 x 2.8 x 3.8 cm exophytic cyst arising from the right ovary. No other visible abnormality. Electronically signed by Morgan Cruz 07/29/2018 3:55 PM
--- NOTE | 2018-07-29 17:12 | CONSULTATION ---
DATE OF CONSULTATION: 07/29/2018 HISTORY OF PRESENT ILLNESS: The patient is a 48-year-old white female G3, P3 who presented on Friday evening with complaints of lower abdominal pain of onset that Friday the 24 of July. The patient also reports that she had been bleeding heavily for the past 2 weeks. The patient was originally seen on consultation by Dr. Roberson who started Megace for bleeding. The patient during hospital stay so far she has been seen by GI as well general surgery she has had a colonoscopy as well as a CT scan. The patient had finding in the right adnexa that was performed on 07/24/2018 claiming inflammatory stranding in the right lower quadrant and right side of the pelvis. Patient has been followed by general surgery who at the present time did not feel appendicitis has been adequately proven and had a colonoscopy for her constipation and this did not show any significant findings. PAST MEDICAL HISTORY: Significant for diabetes mellitus. PAST SURGICAL HISTORY: x3 along with tubal ligation as well as cholecystectomy PAST OB HISTORY: G3, P3. x3. MANAGER BANKING HISTORY: Menarche at age 12. She has always had irregular cycles with irregularly regular bleeding particularly heavy most recently and she reports that prior to coming to the hospital she had menses for about 2 weeks. FAMILY HISTORY: Significant for breast cancer and Parkinson's disease as well as diabetes mellitus. REVIEW OF SYSTEMS: Occasional migraines. SOCIAL HISTORY: Tobacco use. She reports that she quit 6- 7 years ago. Alcohol none. MEDICATIONS: Metformin unknown dose. ALLERGIES: To naproxen. PHYSICAL EXAMINATION: Vital Signs: Height 5 feet 3 inches, weight 265 pounds. Temp 97.6 degrees, blood pressure 129/62, pulse of 82, respirations 18. HEENT: Pupils equal, round, react to light and accommodation. Extraocular movements intact. Oropharynx clear. Neck: Supple. Lungs: Clear to auscultation. Heart: Regular rate and rhythm. Abdomen: Bowel sounds positive. Patient with some diffuse and generalized discomfort in the lower abdomen mainly on the left side but does not appear to be acute peritoneal signs. BIMANUAL EXAMINATION: The uterus has some mobility and from 3 prior C-sections was difficult to reach but also from the patient's body habitus difficult to reach that there was no cervical motion tenderness and adnexa did not have any masses. The patient had some left-sided discomfort.Extremity: Lower extremity edema 1+. DATA: The patient on previous CT scan had the right low quadrant inflammatory stranding and near the right adnexa. The patient's most recent CBC showed a white count of 7.8, hemoglobin of 9.9, hematocrit 31.8 and platelet count 276,000. The patient reports that she is up-to-date on her Pap smear as well as a mammogram both within the last year and both normal. She reports that she has seen the [facility] recently but has not been under the care manager intermediate for her medical diabetes. ASSESSMENT/PLAN: Lower abdominal pain. On examination, difficult to assess if there was any significant findings on the right side. The patient had more pain on the left side. At the present time will obtain a GC, chlamydia by urine culture and also obtain a pelvic ultrasound for evaluation of lower abdominal pain. We will continue to follow. cc: Christopher Morales III, MD
[2018-07-29] MEDS ORDERED: FIORICET PO ONE (17:19)
--- NOTE | 2018-07-29 22:35 | PROVIDER PROGRESS NOTE ---
Progress Note Subjective: No acute overnight events. Patient continues to have RLQ pain. No N/V, CP, SOB. Vaginal bleeding tolerating clears. No fever. Small BM OBJECTIVE: Last Vital Signs Temp 98.1 F 07/29/18 20:56 Pulse 86 07/29/18 20:56 Resp 22 07/29/18 20:56 BP 142/78 07/29/18 20:56 Pulse Ox 99 07/29/18 20:56 Height 5 ft 3 in Weight 265 lb GEN: awake, alert, NAD HEENT: anicteric, MMM NECK: supple, no JVD CV: RRR, no murmurs PULM: CTAB, no wheezing ABD: soft, ND, TTP RLQ, no rebound or guarding EXT: no cce LABS: 07/29/18 07/29/18 07:25 07:25 WBC 7.87 Hgb 9.9 L Plt Count 276 Sodium 139 Potassium 3.7 Chloride 105 Carbon Dioxide 25 BUN 5 L Creatinine 0.6 Colonoscopy 07/28 FINDINGS: There was a thin liquid stool found throughout the colon that was otherwise normal. Colonoscopy could not rule out any flat or polyps less than 1 cm. Multiple attempts were made to try to intubate the ileocecal valve, which was unsuccessful. Retroflexion in the rectum was unremarkable. A/P: Ms. Salgado is a 48 year old woman admitted with DUB and RLQ with CT showing inflammation centered around the right adnexa. Seen by surgery who did not think patient had acute appendicitis. Colonoscopy yesterday was unrevealing for etiology of symptoms. She was transferred today to [place] for SOW FARM TECHNICIAN evaluation. #RLQ: suspect SOW FARM TECHNICIAN etiology; on car supervisor consulted #Constipation: resolved; continue bowel regimen #DM2: diet controlled #Anemia: 2/2 to menorrhagia #Menorrhagia: workup as per SOW FARM TECHNICIAN Will sign off. Please call with questions
[2018-07-30] MEDS: PRILOSEC PO SCH (06:41)
[2018-07-30] MEDS: HUMULIN R (PARKWAY) SUBQ SCH ×3 (06:41→16:02)
[2018-07-30 06:56] LABS: AGAP 10; BUN 5 mg/dL (8-22); CALCIUM 8.8 mg/dL (8.8-10.2); CHLORIDE 102 mmol/L (98-107); COSMO 274; CREATININE 0.7 mg/dL (0.5-0.9); ESTIMATED GFR > 60; GLUCOSE 111 mg/dL (70-104); POTASSIUM 3.9 mmol/L (3.5-5.1); SODIUM 138 mmol/L (136-145); TCO2 26 mmol/L (25-35)
[2018-07-30 07:02] LABS: BASO# 0.02 X1000 (0.0-0.2); BASO% 0.3 % (0.0-0.8); EOS# 0.11 X1000 (0.0-0.7); EOS% 1.4 % (0.0-10.0); HEMATOCRIT 33.2 % (37.0-47.0); HEMOGLOBIN 10.5 g/dL (12.0-16.0); IMM GRAN# 0.04 X1000 (0.0-0.04); IMM GRAN% 0.5 % (0.0-0.5); LYMPH# 1.24 X1000 (1.2-3.4); LYMPH% 15.8 % (20.5-51.1); MCH 28.2 PG (27-31); MCHC 31.6 g/dL (33-37); MCV 89.2 FL (81-99); MONO# 0.59 X1000 (0.11-0.59); MONO% 7.5 % (1.7-9.3); NEUT# 5.86 X1000 (1.4-6.5); NEUT% 74.5 % (42.2-75.2); PLT 302 X1000 (130-400); RBC 3.72 XMIL (4.2-5.4); RDW 15.1 % (11.5-14.5); WBC 7.86 X1000 (4.8-10.8)
[2018-07-30] MEDS: MIRALAX PO SCH ×2 (07:29→12:53)
[2018-07-30] MEDS: MEGACE PO SCH ×2 (07:29→12:53)
[2018-07-30] MEDS: ULTRAM PO PRN (07:29)
[2018-07-30 13:47] VITALS: BP 134/50
--- NOTE | 2018-07-30 16:40 | OB/GYN PROGRESS NOTE ---
Progress Note GRADUATE ASSISTANT - . Patient Problems: Current Active Problems Problem Status Onset Dysfunctional uterine bleeding Acute PID (pelvic inflammatory disease) Acute UTI (urinary tract infection) Acute GRADUATE ASSISTANT Progress Note: Vital Signs - 24 hr 07/29/18 16:37 07/29/18 20:56 07/30/18 04:07 Temperature 98.1 F 99.0 F Pulse Rate 86 97 H Respiratory Rate 22 22 Blood Pressure 142/78 103/49 O2 Sat by Pulse Oximetry 100 96 96 07/30/18 07:33 07/30/18 11:39 07/30/18 13:44 Temperature 98.4 F Pulse Rate 93 H Respiratory Rate 19 Blood Pressure 118/51 134/50 O2 Sat by Pulse Oximetry 94 L 94 L Bedside Urine ED: Urine Bedside Start: 07/24/18 16:29 Freq: ORDERED Status: Complete Protocol: Activity Type Activity Date Activity User E-Sign Co-Sign Detail Recorded Client Recorded Date Recorded By Document 07/24/18 20:47 [id number] 07/24/18 20:47 [id number] Edit Status 07/25/18 00:36 [email or web address] Active=>Complete [id number] 07/25/18 00:36 [id number] 07/24/18 20:47 Point of Care [Bedside Point of Care] -Lot # [id number] - Results Negative -Control Line Visible? Yes -Additional Comment exp 2019-09-14 07/24/18 22:42 Blood Culture - Final Blood NO GROWTH AFTER 5 DAYS 07/24/18 23:05 Blood Culture - Final Blood NO GROWTH AFTER 5 DAYS Laboratory Results - last 24 hr 07/29/18 07/30/18 07/30/18 20:57 05:19 05:19 WBC 7.86 RBC 3.72 L Hgb 10.5 L Hct 33.2 L MCV 89.2 MCH 28.2 MCHC 31.6 L RDW Std Deviation 15.1 H Plt Count 302 MPV 9.0 Immature Gran % (Auto) 0.5 Neut % (Auto) 74.5 Lymph % (Auto) 15.8 L Kern % (Auto) 7.5 Eos % (Auto) 1.4 Baso % (Auto) 0.3 Immature Gran # (Auto) 0.04 Neut # (Auto) 5.86 Lymph # (Auto) 1.24 Kern # (Auto) 0.59 Eos # (Auto) 0.11 Baso # (Auto) 0.02 Sodium 138 Potassium 3.9 Chloride 102 Carbon Dioxide 26 Anion Gap 10 BUN 5 L Creatinine 0.7 Estimated GFR/1.73 m2 > 60 BUN/Creatinine Ratio 7 Glucose 111 H POC Glucose 145 H Calculated Osmolality 274 Calcium 8.8 07/30/18 07/30/18 07/30/18 05:31 11:43 14:01 WBC RBC Hgb Hct MCV MCH MCHC RDW Std Deviation Plt Count MPV Immature Gran % (Auto) Neut % (Auto) Lymph % (Auto) Kern % (Auto) Eos % (Auto) Baso % (Auto) Immature Gran # (Auto) Neut # (Auto) Lymph # (Auto) Kern # (Auto) Eos # (Auto) Baso # (Auto) Sodium Potassium Chloride Carbon Dioxide Anion Gap BUN Creatinine Estimated GFR/1.73 m2 BUN/Creatinine Ratio Glucose POC Glucose 102 147 H 165 H Calculated Osmolality Calcium Patient reports continued left generalized abdominal discomfort. She reports continued vaginal bleeding (less that a period). We discussed anovulatory bleeding, weight loss, and increased risk for endometrial cancer. She understands that ultrasound was only positive for small right ovarian cyst. She will follow up with Dr. Morales as outpatient A&O NAD RRR S/ND/morbid obesity No C/C/E Ultrasound with small right ovarian cyst. A/P 48 y/o with anovulatory bleeding, morbid obesity and left sided generalized abdominal discomfort. 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 No evidence of active infection, bld cultures neg, WBC wnl, afebrile. Patient can follow up with Dr. Morales for custodial managment of DUB.
--- NOTE | 2018-07-31 14:58 | DISCHARGE SUMMARY ---
ADMISSION DATE: 07/24/2018 DISCHARGE DATE: 07/30/2018 CONSULTATIONS: 1. Dr. Roberson with [facility]YS[facility]. 2. Dr. Iam Bruner with General Surgery. 3. Dr. Sanchez with Gastroenterology. PERTINENT PROCEDURES: 1. Pelvis CT: Inflammatory stranding in the right lower quadrant, right side of the pelvis. The appendix could not be identified, so appendicitis could not completely be excluded. However, the inflammation appeared to be more centered around the right adnexal region. 2. Abdominal x-ray: Possible mild constipation. 3. Colonoscopy showed thin liquid stool found throughout the colon. Otherwise normal. Colonoscopy cannot rule out any flat or polyps less than 1 cm. Multiple attempts were made to try to intubate the ileocecal valve, which was unsuccessful. Retroflexion in the rectum was unremarkable. The recommendation was transvaginal ultrasound and PHYSICIAN RELATIONS SPECIALIST consultation. 4. Pelvic ultrasound: Apparent 3.6 x 2.8 x 3.8 cm exophytic cyst arising from the right ovary. No other visible abnormality. DISCHARGE DIAGNOSES: 1. Ultrasound that showed a small right ovarian cyst. She has been evaluated by PHYSICIAN RELATIONS SPECIALIST. PHYSICIAN RELATIONS SPECIALIST felt the etiology of her discomfort was unlikely. There was no active infection. All blood cultures have been negative. WBC was within normal limits. She was afebrile. She can follow up with Dr. Morales for long-term management of DUB. 2. Appendicitis ruled out by General Surgery. 3. Constipation. The patient did have a colonoscopy that did not show any acute finding. 4. Anemia secondary to menorrhea. Again, she has been worked up by PHYSIC[facility] RELATIONS SPECIALIST and can follow up as an outpatient. 5. Left-sided abdominal pain. See numbers 1 and 2. The patient is currently tolerating a diabetic diet. 6. Type 2 diabetes, diet controlled. Hemoglobin A1c is 5.8. 7. Morbid obesity. The patient has been educated on diet and exercise. HOSPITAL COURSE: Briefly, Ms. Salgado is a 48-year-old female who presented last Friday to the ED with complaints of lower abdominal pain that had started on the 24 of July. She also reported bleeding heavily for 2 weeks. She was seen in consultation by Dr. Roberson and was initiated on Megace for her bleeding with improvement. She continued to have left abdominal pain. So Gastroenterology and General surgery were consulted. They did not feel that she had appendicitis. She had a colonoscopy as well as a CT scan that did not show any acute findings except for a right adnexal and inflammatory stranding in the right lower quadrant on the right side of the pelvis. Again, she was followed by General Surgery who did not feel that it was appendicitis and was ruled out with a colonoscopy. She was sent to [facility] to have a vaginal ultrasound that just showed a small right renal cyst inconsistent with her left side and abdominal pain. Again, she has no signs of infection. Afebrile. White count within normal limits. She is now tolerating a diabetic diet. Blood cultures remain negative. Urine culture remains negative. PHYSICIAN RELATIONS SPECIALIST feels that she can be discharged home today to follow up with Dr. Morales. VITAL SIGNS: At time of discharge, temperature is 98.4 degrees, heart rate 93, respirations 19, blood pressure 134/50, O2 is 94% on room air. DISCHARGE DIET: Diabetic. DISCHARGE MEDICATIONS: 1. Tylenol 500 mg tablets, 2 tablets p.o. q.4-6 hours p.r.n. 2. Megace 40 mg p.o. b.i.d. 3. MiraLAX 17 g p.o. b.i.d. The patient can get this [id number]. FOLLOW-UP: Ms. Salgado is being discharged back home to follow up with PHYSIC[facility] RELATIONS SPECIAL[facility] and obtain a primary care provider from the list that will be provided to her within the next 1 to 2 weeks. She is to continue her diabetic diet. She has been educated on diet and exercise. She can return to the ED or call 911 for any worsening of symptoms. Dictated by LAYLA Kerr for Juaquin Callejas MD cc: MD Christopher Massey III, MD Michael Kelso, MD Matthew L. Figh, MD
--- NOTE | 2018-07-31 20:47 | DISCHARGE SUMMARY ---
ADMISSION DATE: 07/24/2018 DISCHARGE DATE: 07/30/2018 ADDENDUM: Patient is still having dysfunctional uterine bleeding, but this will need to be followed up as an outpatient. She is still having some mild abdominal pain, but interestingly on exam today, she could not qualify if the pain was better or worse. Notes that her bleeding was worse after the ultrasound, but is actually improved currently. She is currently afebrile. Blood pressures are stable. She has been seen by surgery, GI and [facility]. At this point, we will discharge her home. She will need to follow up outpatient to continue to attempt to improve her dysfunctional uterine bleeding. cc: Juaquin Callejas MD
== END 2018-07-30 19:05 | disposition home or self-care (01) | DRG 760 ==
LOC: ED 16:18 → 3N 23:29 → SUATTDRO 23:29 → P.MEDSURG 07-29 11:13
PROVIDERS: ATTEND Family Medicine
CPT/HCPCS: 74000; 74018; 74176; 76856; 80048; 80053; 81001; 81025; 82150; 82948; 83036; 83605; 83690; 84146; 84439; 84443; 85025; 87040; 87088; 87491; 87591; 94761; 96365; 96375; 99285; A9270; J0696; J1170; J1885; J2250; J2405; J7030; J7050; S0179; XXXXX